=== PATIENT | female | born 1985 | race Caucasian/White ===

== ENCOUNTER 2016-06-24 18:01 | Emergency (ER) | payer OTHER ==
[~2016-06-24 18:01] MED LIST: METHADONE HCL10 MG PO
--- NOTE | 2016-06-24 21:04 | ED CLINICAL REPORT ---
Clinical Report - Physicians/Mid Levels [facility] [address] [place] [address] 06/24/2016 18:04 Patient: RENAY GARZA Time Seen: 18:06. Arrived- By private vehicle. Historian- patient. HISTORY OF PRESENT ILLNESS Chief Complaint: VOMITING and DIARRHEA. This started 2 days ago and is still present but is improving. It was abrupt in onset and has been constant. The patient has had nausea, vomiting, diarrhea and abdominal pain. No black stools, bloody stools, constipation, history of possible bad food exposure or known contact with a sick individual. Has not recently been camping or on antibiotics. The illness is described as severe. (Patient says she suddenly got nauseous and started vomiting 2 days ago. She has a colostomy bag as well for ulcerative colitisand says herstool has been more liquidy. No blood in the colostomy bag. No fevers or chills. She is got diffuse abdominal cramping. No pain with urination or increased urinary frequency.). Similar symptoms previously: None. Recent medical care: Not recently seen/assessed. REVIEW OF SYSTEMS No fever, difficulty with urination or urination, dark urine or chills. No ear pain, runny nose, sore throat, cough or black stools. No bloody stools, urinary frequency, hematuria, back pain or neck pain. No skin rash, headache, numbness, weakness or diabetic symptoms. The patient has had weight loss, diarrhea, nausea and vomiting. All systems otherwise negative, except as recorded above. PAST HISTORY See nurses notes. GI disease. No history of diabetes mellitus. SOCIAL HISTORY Smoker- current status unknown. History of drug use. ADDITIONAL NOTES The nursing notes have been reviewed. PHYSICAL EXAM Appearance: Alert. Oriented X3. No acute distress. Eyes: Pupils equal, round and reactive to light. Eyes normal inspection. ENT: Nose normal. Pharynx normal. Neck: Normal inspection. Neck supple. No meningeal signs, JVD or lymphadenopathy. CVS: Normal heart rate and rhythm. Heart sounds normal. Respiratory: No respiratory distress. Breath sounds normal. Abdomen: Soft. Mild tenderness diffusely. No guarding or rebound tenderness. No organomegaly. No mass. (Colostomy bag present.). Back: Normal inspection. No CVA tenderness. Skin: Skin warm and dry. No rash. Extremities: Extremities exhibit normal ROM. No lower extremity edema. Neuro: Oriented X 3. No motor deficit. No sensory deficit. LABS, X-RAYS, AND EKG Laboratory Tests: UA-Culture if indicated: (AMADO: 06/24/2016 19:51) ( [facility] 06/24/2016 20:09) Final results Test Result Flag Units (Reference) URINE COLOR YELLOW URINE APPEARANCE CLEAR URINE GLUCOSE NEGATIVE (NEGATIVE) URINE BILIRUBIN NEGATIVE (NEGATIVE) URINE KETONE NEGATIVE (NEGATIVE) URINE SPECIFIC GRAVITY 1.020 (1.010-1.030) URINE PH 6.0 (5.0-8.0) URINE PROTEIN NEGATIVE (NEGATIVE) URINE UROBILINOGEN 0.2 EU/dL (0.2-1.0) URINE NITRITE NEGATIVE (NEGATIVE) URINE BLOOD NEGATIVE (NEGATIVE) URINE LEUK ESTERASE NEGATIVE (NEGATIVE) URINE RBC NONE SEEN rbc/hpf (0-1) URINE WBC 0-1 wbc/hpf (0-1) URINE EPITHELIAL CELLS 1-3 EPI/hpf (0-5) URINE BACTERIA TRACE (<1+) (NONE SEEN) URINE COMMENT CULT NOT INDICATED URINE CULTURES ARE SET-UP BASED ON THE FOLLOWING CRITERIA:POSITIVE NITRITEPOSITIVE LEUKOCYTE ESTERASEGREATER THAN 10 WHITE BLOOD CELLSMODERATE (2+) OR GREATER BACTERIA Urine: (AMADO: 06/24/2016 19:51) ( [facility] 06/24/2016 20:00) Final results Test Result Flag Units (Reference) URINE NEGATIVE CBC w Diff: (AMADO: 06/24/2016 19:48) ( [facility] [place] 06/24/2016 19:58) Final results Test Result Flag Units (Reference) WHITE BLOOD COUNT 6.8 K/uL (4.5-11.5) RED BLOOD COUNT 4.63 M/uL (4.00-5.20) HEMOGLOBIN 11.9 L gm/dL (12.0-16.0) HEMATOCRIT 36.6 % (36.0-46.0) MEAN CELL VOLUME 79 L fL (80-100) MEAN CORPUSCULAR HGB 26 pg (26-34) MEAN CORPUSCULAR HGB CONC 33 g/dL (31-37) RED CELL DISTRIBUTION WIDTH 16.9 H % (11.6-14.8) PLATELET COUNT 620 H K/uL (150-400) NEUTROPHIL % 62.4 % (50-75) LYMPH % 22.1 L % (25-40) MONO % 12.7 % (3-14) EOSINOPHIL % 2.6 % (0-4) BASOPHIL % 0.2 % (0-2) CMP: (AMADO: 06/24/2016 19:48) ( MsgRcvd 06/24/2016 20:46) Final results Test Result Flag Units (Reference) GLUCOSE 112 H mg/dL (70-110) BUN 39 H mg/dL (7-18) CREATININE 1.2 mg/dL (0.6-1.3) Estimated GFR 56.85 mL/min Estimated GFR- >60 mL/min Note: Persistent reduction over 3 months in eGFR<60 mL/min/1.73 m2 defines CKD. Patients with eGFR values>=60 mL/min/1.73 m2 may also have CKD if evidence ofpersistent proteinuria. Additional information may be foundat www.kidney.org. SODIUM 128 L mmol/L (136-145) POTASSIUM 4.2 mmol/L (3.5-5.1) CHLORIDE 93 L mmol/L (98-107) CARBON DIOXIDE 23 mmol/L (21-32) CALCIUM 8.6 mg/dL (8.5-10.1) TOTAL PROTEIN 8.4 H g/dL (6.4-8.2) ALBUMIN 2.9 L g/dL (3.3-5.0) BILIRUBIN, TOTAL 0.4 mg/dL (0.0-1.0) ALKALINE PHOSPHATASE 114 U/L (46-116) AST (SGOT) 14 L U/L (15-37) ALT (SGPT) 17 U/L (12-78) C-REACTIVE PROTEIN 3.0 H mg/dL (0.0-0.9) . PROGRESS AND PROCEDURES Course of Care: 19:44 06/24/16. Patient stable. Diffuse abdominal pain. Likely viral etiologyalthough history of Crohn's we'll check a CBC and CRP. Otherwise give Zofran for nausea and rehydrate. She starting to feel better already on her own so will not Require aggressive treatment. Patient's lab essentially normal. CRP slightly elevated but I doubt significant worsening of her ulcerative colitis/Crohn's. We'll make her comfortable. She needs to follow up with her primary care provider next week for reevaluation. Warnings given return here if she develops fever, significant worsening pain or uncontrolled v. Discharge decision based on the following: patient's condition is stable; patient's condition is improved; patient's exam is improved. CLINICAL IMPRESSION Acute viral gastroenteritis. INSTRUCTIONS Rest at home for two days until better. Drink plenty of fluids. No dietary restrictions. Warnings: Further evaluation is necessary in order to assess the possibility of serious illness. It is very important to follow up with a physician. CONTROLLED SUBSTANCE WARNINGS. Prescription Medications: Zofran ODT 8 mg: take 1 orally every 8 hours as needed for nausea and vomiting. Dispense ten (10). No refill. Substitution is permissible. OTC Medications: Imodium (available over the counter): take according to label instructions. Follow-up: Follow up with your doctor in three days if not well. Understanding of the discharge instructions verbalized by patient. (Electronically signed by Osito Baldwin, 06/24/2016 23:15)
--- NOTE | 2016-06-24 21:04 | ED NURSING NOTES ---
Clinical Report - Nurses [facility] [address] [place] [address] 06/24/2016 18:04 [id number] Triage time 18:38. Acuity: LEVEL 3. Chief Complaint: FATIGUE, VOMITING and UNABLE TO VOID (leg cramps). Alert. No acute distress. VENITA COMA SCORE: [place] Coma Scale: 15- eyes open spontaneously (4); best verbal response- oriented x 4 (5); best motor response- obeys commands (6). --18:50 Carlotta Ly R.N. 18:37 06/24/16. BP: 101/6. HR: 79. RR: 18. O2 saturation: 99% on room air. Temp: 98.7 F (oral). Pain level now: 5/10. --18:50 Carlotta Ly R.N. Weight: 46.7 kg measured. Height/Length: 65 inches Per Patient. BMI: 17.2. --18:39 Carlotta Ly R.N. Medications None. --18:40 Carlotta Ly R.N. Medication/allergy information source: the patient. --18:50 Carlotta Ly R.N. Allergies Acetaminophen. Ceclor. Hydrocodone. Morphine and Related. Penicillins. --18:41 Carlotta Ly R.N. History Arrived by private vehicle. Historian: patient and family. Accompanied by family. Primary physician (Afshan). Onset. (about 3 - 4 days). PAST MEDICAL HX: Last normal menstrual period- May 2015. SOCIAL HX: Heavy tobacco smoker- less than 1 pack per day. History of drug use: heroin, marijuana. (used "a few hours ago"). No alcohol use. LEARNING NEEDS ASSESSMENT: The learning needs assessment revealed no barriers. FALL RISK ASSESSMENT: Fall risk assessment completed. Risk factors identified include patient impairment of mobility. Fall interventions initiated. Patient placed on stretcher. Side rails up x2. Brakes on Bed in low position. Family at bedside. FUNCTIONAL ASSESSMENT: Functional assessment performed: independent with the activities of daily living. --18:50 Carlotta Ly R.N. PROBLEMS: Lifestyle / Substance Problems. Crohn's Disease. Ulcerative Colitis. --18:42 Carlotta Ly R.N. Bipolar Disorder. Blood clots. --18:50 Carlotta Ly R.N. ADDITIONAL SURGERIES: Osteotomy. --18:42 Carlotta Ly R.N. Assessment GENERAL / NEURO / PSYCH: Alert. Oriented X 4. Appears in no acute distress. Patient appears calm and cooperative. RESPIRATORY: Respirations not labored. SKIN: Skin is warm and dry. --18:50 Carlotta Ly R.N. Interventions ID and allergy band on patient. To treatment room. --18:50 Carlotta Ly R.N. PHYSICAL ASSESSMENT 19:06/24/16. Ambulatory to room. Patient gowned. GENERAL / NEURO / PSYCH: Alert. Oriented X 4. Appears in no acute distress. RESPIRATORY: Respirations not labored. SKIN: Skin is warm and dry. --19:07 Carlotta Ly R.N. NURSING PROGRESS NOTES 19:06/24/16. Patient gowned. Head of bed elevated. Call light placed in reach. Side rails up x 1. Bed placed in lowest position. Brakes of bed on. --19:07 Carlotta Ly R.N. 19:41 06/24/2016 Site #1 started via IV in the right forearm with an 22g angiocath; one attempt. Saline lock flushed with saline. --19:41 Franklin Evans R.N. 19:53 06/24/2016 Zofran (Ondansetron HCl) IVP 8 mg given over 4 minute(s) via site #1. Allergies verified and confirmed 5 rights. IV patency established. IV site checked: no pain, redness, or swelling. IV flushed thoroughly pre- and post-medication administration. --19:53 Franklin Evans R.N. 19:53 06/24/2016 Started bag #1 1000 mL IV Fluids IV NS (Saline); bolus of 1000 mL wide open via site #1. Allergies verified and confirmed 5 rights. IV patency established. IV site checked: no pain, redness, or swelling. IV flushed thoroughly pre- and post-medication administration. --19:54 Franklin Evans R.N. DISPOSITION / DISCHARGE Departure time: 2100. Condition at departure: improved. No learning barriers present. Discharge instructions provided and reviewed with the patient. Reviewed warnings. Reviewed medication(s). Treatments reviewed. Reviewed referrals. Reviewed diet. Activity restrictions reviewed. Note given. Patient verbalized understanding. Written instructions provided in Citizen Of [place]. The patient was discharged by the physician health assistant. She was discharged home and unaccompanied at time of discharge. She left the Emergency Department ambulatory and via private vehicle. Patient driving. --22:29 Franklin Evans R.N. 22:28 06/24/16. BP: 101/61. HR: 66. RR: 16. O2 saturation: 99%. Temp: 98 F. Pain level now 0/10. --22:29 Franklin Evans R.N. 20:29 06/24/2016 Site #1 removed upon discharge. Bandage applied. --22:29 Franklin Evans R.N. Locked/Released at 06/24/2016 22:30 by Franklin Evans R.N.
--- NOTE | 2016-06-24 21:04 | ED NURSING NOTES ---
Clinical Report - Nurses [facility] [address] [place] [address] 06/24/2016 18:04 [id number] Triage time 18:38. Acuity: LEVEL 3. Chief Complaint: FATIGUE, VOMITING and UNABLE TO VOID (leg cramps). Alert. No acute distress. VENITA COMA SCORE: [place] Coma Scale: 15- eyes open spontaneously (4); best verbal response- oriented x 4 (5); best motor response- obeys commands (6). --18:50 Carlotta Ly R.N. 18:37 06/24/16. BP: 101/6. HR: 79. RR: 18. O2 saturation: 99% on room air. Temp: 98.7 F (oral). Pain level now: 5/10. --18:50 Carlotta Ly R.N. Weight: 46.7 kg measured. Height/Length: 65 inches Per Patient. BMI: 17.2. --18:39 Carlotta Ly R.N. Medications None. --18:40 Carlotta Ly R.N. Medication/allergy information source: the patient. --18:50 Carlotta Ly R.N. Allergies Acetaminophen. Ceclor. Hydrocodone. Morphine and Related. Penicillins. --18:41 Carlotta Ly R.N. History Arrived by private vehicle. Historian: patient and family. Accompanied by family. Primary physician (Afshan). Onset. (about 3 - 4 days). PAST MEDICAL HX: Last normal menstrual period- May 2015. SOCIAL HX: Heavy tobacco smoker- less than 1 pack per day. History of drug use: heroin, marijuana. (used "a few hours ago"). No alcohol use. LEARNING NEEDS ASSESSMENT: The learning needs assessment revealed no barriers. FALL RISK ASSESSMENT: Fall risk assessment completed. Risk factors identified include patient impairment of mobility. Fall interventions initiated. Patient placed on stretcher. Side rails up x2. Brakes on Bed in low position. Family at bedside. FUNCTIONAL ASSESSMENT: Functional assessment performed: independent with the activities of daily living. --18:50 Carlotta Ly R.N. PROBLEMS: Lifestyle / Substance Problems. Crohn's Disease. Ulcerative Colitis. --18:42 Carlotta Ly R.N. Bipolar Disorder. Blood clots. --18:50 Carlotta Ly R.N. ADDITIONAL SURGERIES: Osteotomy. --18:42 Carlotta Ly R.N. Assessment GENERAL / NEURO / PSYCH: Alert. Oriented X 4. Appears in no acute distress. Patient appears calm and cooperative. RESPIRATORY: Respirations not labored. SKIN: Skin is warm and dry. --18:50 Carlotta Ly R.N. Interventions ID and allergy band on patient. To treatment room. --18:50 Carlotta Ly R.N. PHYSICAL ASSESSMENT 19:06/24/16. Ambulatory to room. Patient gowned. GENERAL / NEURO / PSYCH: Alert. Oriented X 4. Appears in no acute distress. RESPIRATORY: Respirations not labored. SKIN: Skin is warm and dry. --19:07 Carlotta Ly R.N. NURSING PROGRESS NOTES 19:06/24/16. Patient gowned. Head of bed elevated. Call light placed in reach. Side rails up x 1. Bed placed in lowest position. Brakes of bed on. --19:07 Carlotta Ly R.N. 19:41 06/24/2016 Site #1 started via IV in the right forearm with an 22g angiocath; one attempt. Saline lock flushed with saline. --19:41 Franklin Evans R.N. 19:53 06/24/2016 Zofran (Ondansetron HCl) IVP 8 mg given over 4 minute(s) via site #1. Allergies verified and confirmed 5 rights. IV patency established. IV site checked: no pain, redness, or swelling. IV flushed thoroughly pre- and post-medication administration. --19:53 Franklin Evans R.N. 19:53 06/24/2016 Started bag #1 1000 mL IV Fluids IV NS (Saline); bolus of 1000 mL wide open via site #1. Allergies verified and confirmed 5 rights. IV patency established. IV site checked: no pain, redness, or swelling. IV flushed thoroughly pre- and post-medication administration. --19:54 Franklin Evans R.N. DISPOSITION / DISCHARGE Departure time: 2100. Condition at departure: improved. No learning barriers present. Discharge instructions provided and reviewed with the patient. Reviewed warnings. Reviewed medication(s). Treatments reviewed. Reviewed referrals. Reviewed diet. Activity restrictions reviewed. Note given. Patient verbalized understanding. Written instructions provided in [place] Citizen. The patient was discharged by the physician marketing administrative assistant. She was discharged home and unaccompanied at time of discharge. She left the Emergency Department ambulatory and via private vehicle. Patient driving. --22:29 Franklin Evans R.N. 22:28 06/24/16. BP: 101/61. HR: 66. RR: 16. O2 saturation: 99%. Temp: 98 F. Pain level now 0/10. --22:29 Franklin Evans R.N. 20:29 06/24/2016 Site #1 removed upon discharge. Bandage applied. --22:29 Franklin Evans R.N. Locked/Released at 06/24/2016 22:30 by Franklin Evans R.N.
--- NOTE | 2016-06-24 21:04 | ED ORDER SUMMARY ---
..... Patient: RENAY GARZA OrderSheet [facility] VisitID: [id number] [place] [address] 30y, F Registration Date/Time: 06/24/2016 ORDER SHEET Weight: 46.7 kg (measured) Allergies: Acetaminophen, Ceclor, Hydrocodone, Morphine and Related, Penicillins GENERAL ORDERS: CBC w Diff Urgent (19:06/24/2016 JCoates) (Ack 19:47 ALawrence ER Tech1) (19:49 ALawrence ER Tech1) CMP Urgent (:06/24/2016 JCoates) (Ack 19:47 ALawrence ER Tech1) (19:49 ALawrence ER Tech1) UA-Culture if indicated Urgent (:06/24/2016 JCoates) (Ack 19:47 ALawrence ER Tech1) (19:53 JBullard R.N.) Urine Urgent (:06/24/2016 JCoates) (Ack 19:47 ALawrence ER Tech1) (19:53 JBullard R.N.) CRP Urgent (:06/24/2016 JCoates) (Ack 19:47 ALawrence ER Tech1) (19:49 ALawrence ER Tech1) MEDICATION ORDERS: IV FLUIDS: IV NS with Normal Saline 1 Liter: initial bolus 1000 mL (1000 mL/hr), then 1000 mL/hr for X1 (NOW) (19:06/24/2016 JCoates) (19:54 JBullard R.N.) Zofran IV 8 mg (NOW) (:06/24/2016 JCoates) (19:53 JBullard R.N.) IV Saline Lock (:06/24/2016 JCoates) (19:41 JBullard R.N.) ORDER SHEET NOTES: [Electronically signed by Franklin Evans R.N. (22:30 06/24/2016)] [Electronically signed by Osito Baldwin (23:15 06/24/2016)] [Electronically locked/signed by Franklin Evans R.N. (22:30 06/24/2016)]
--- NOTE | 2016-06-24 21:04 | ED CLINICAL REPORT ---
Clinical Report - Physicians/Mid Levels [facility] [address] [place] [address] 06/24/2016 18:04 Patient: RENAY GARZA Time Seen: 18:06. Arrived- By private vehicle. Historian- patient. HISTORY OF PRESENT ILLNESS Chief Complaint: VOMITING and DIARRHEA. This started 2 days ago and is still present but is improving. It was abrupt in onset and has been constant. The patient has had nausea, vomiting, diarrhea and abdominal pain. No black stools, bloody stools, constipation, history of possible bad food exposure or known contact with a sick individual. Has not recently been camping or on antibiotics. The illness is described as severe. (Patient says she suddenly got nauseous and started vomiting 2 days ago. She has a colostomy bag as well for ulcerative colitisand says herstool has been more liquidy. No blood in the colostomy bag. No fevers or chills. She is got diffuse abdominal cramping. No pain with urination or increased urinary frequency.). Similar symptoms previously: None. Recent medical care: Not recently seen/assessed. REVIEW OF SYSTEMS No fever, difficulty with urination or urination, dark urine or chills. No ear pain, runny nose, sore throat, cough or black stools. No bloody stools, urinary frequency, hematuria, back pain or neck pain. No skin rash, headache, numbness, weakness or diabetic symptoms. The patient has had weight loss, diarrhea, nausea and vomiting. All systems otherwise negative, except as recorded above. PAST HISTORY See nurses notes. GI disease. No history of diabetes mellitus. SOCIAL HISTORY Smoker- current status unknown. History of drug use. ADDITIONAL NOTES The nursing notes have been reviewed. PHYSICAL EXAM Appearance: Alert. Oriented X3. No acute distress. Eyes: Pupils equal, round and reactive to light. Eyes normal inspection. ENT: Nose normal. Pharynx normal. Neck: Normal inspection. Neck supple. No meningeal signs, JVD or lymphadenopathy. CVS: Normal heart rate and rhythm. Heart sounds normal. Respiratory: No respiratory distress. Breath sounds normal. Abdomen: Soft. Mild tenderness diffusely. No guarding or rebound tenderness. No organomegaly. No mass. (Colostomy bag present.). Back: Normal inspection. No CVA tenderness. Skin: Skin warm and dry. No rash. Extremities: Extremities exhibit normal ROM. No lower extremity edema. Neuro: Oriented X 3. No motor deficit. No sensory deficit. LABS, X-RAYS, AND EKG Laboratory Tests: UA-Culture if indicated: (AMADO: 06/24/2016 19:51) ( [facility] 06/24/2016 20:09) Final results Test Result Flag Units (Reference) URINE COLOR YELLOW URINE APPEARANCE CLEAR URINE GLUCOSE NEGATIVE (NEGATIVE) URINE BILIRUBIN NEGATIVE (NEGATIVE) URINE KETONE NEGATIVE (NEGATIVE) URINE SPECIFIC GRAVITY 1.020 (1.010-1.030) URINE PH 6.0 (5.0-8.0) URINE PROTEIN NEGATIVE (NEGATIVE) URINE UROBILINOGEN 0.2 EU/dL (0.2-1.0) URINE NITRITE NEGATIVE (NEGATIVE) URINE BLOOD NEGATIVE (NEGATIVE) URINE LEUK ESTERASE NEGATIVE (NEGATIVE) URINE RBC NONE SEEN rbc/hpf (0-1) URINE WBC 0-1 wbc/hpf (0-1) URINE EPITHELIAL CELLS 1-3 EPI/hpf (0-5) URINE BACTERIA TRACE (<1+) (NONE SEEN) URINE COMMENT CULT NOT INDICATED URINE CULTURES ARE SET-UP BASED ON THE FOLLOWING CRITERIA:POSITIVE NITRITEPOSITIVE LEUKOCYTE ESTERASEGREATER THAN 10 WHITE BLOOD CELLSMODERATE (2+) OR GREATER BACTERIA Urine: (AMADO: 06/24/2016 19:51) ( [facility] 06/24/2016 20:00) Final results Test Result Flag Units (Reference) URINE NEGATIVE CBC w Diff: (AMADO: 06/24/2016 19:48) ( [facility] 06/24/2016 19:58) Final results Test Result Flag Units (Reference) WHITE BLOOD COUNT 6.8 K/uL (4.5-11.5) RED BLOOD COUNT 4.63 M/uL (4.00-5.20) HEMOGLOBIN 11.9 L gm/dL (12.0-16.0) HEMATOCRIT 36.6 % (36.0-46.0) MEAN CELL VOLUME 79 L fL (80-100) MEAN CORPUSCULAR HGB 26 pg (26-34) MEAN CORPUSCULAR HGB CONC 33 g/dL (31-37) RED CELL DISTRIBUTION WIDTH 16.9 H % (11.6-14.8) PLATELET COUNT 620 H K/uL (150-400) NEUTROPHIL % 62.4 % (50-75) LYMPH % 22.1 L % (25-40) MONO % 12.7 % (3-14) EOSINOPHIL % 2.6 % (0-4) BASOPHIL % 0.2 % (0-2) CMP: (AMADO: 06/24/2016 19:48) ( MsgRcvd 06/24/2016 20:46) Final results Test Result Flag Units (Reference) GLUCOSE 112 H mg/dL (70-110) BUN 39 H mg/dL (7-18) CREATININE 1.2 mg/dL (0.6-1.3) Estimated GFR 56.85 mL/min Estimated GFR- >60 mL/min Note: Persistent reduction over 3 months in eGFR<60 mL/min/1.73 m2 defines CKD. Patients with eGFR values>=60 mL/min/1.73 m2 may also have CKD if evidence ofpersistent proteinuria. Additional information may be foundat www.kidney.org. SODIUM 128 L mmol/L (136-145) POTASSIUM 4.2 mmol/L (3.5-5.1) CHLORIDE 93 L mmol/L (98-107) CARBON DIOXIDE 23 mmol/L (21-32) CALCIUM 8.6 mg/dL (8.5-10.1) TOTAL PROTEIN 8.4 H g/dL (6.4-8.2) ALBUMIN 2.9 L g/dL (3.3-5.0) BILIRUBIN, TOTAL 0.4 mg/dL (0.0-1.0) ALKALINE PHOSPHATASE 114 U/L (46-116) AST (SGOT) 14 L U/L (15-37) ALT (SGPT) 17 U/L (12-78) C-REACTIVE PROTEIN 3.0 H mg/dL (0.0-0.9) . PROGRESS AND PROCEDURES Course of Care: 19:44 06/24/16. Patient stable. Diffuse abdominal pain. Likely viral etiologyalthough history of Crohn's we'll check a CBC and CRP. Otherwise give Zofran for nausea and rehydrate. She starting to feel better already on her own so will not Require aggressive treatment. Patient's lab essentially normal. CRP slightly elevated but I doubt significant worsening of her ulcerative colitis/Crohn's. We'll make her comfortable. She needs to follow up with her primary care provider next week for reevaluation. Warnings given return here if she develops fever, significant worsening pain or uncontrolled v. Discharge decision based on the following: patient's condition is stable; patient's condition is improved; patient's exam is improved. CLINICAL IMPRESSION Acute viral gastroenteritis. INSTRUCTIONS Rest at home for two days until better. Drink plenty of fluids. No dietary restrictions. Warnings: Further evaluation is necessary in order to assess the possibility of serious illness. It is very important to follow up with a physician. CONTROLLED SUBSTANCE WARNINGS. Prescription Medications: Zofran ODT 8 mg: take 1 orally every 8 hours as needed for nausea and vomiting. Dispense ten (10). No refill. Substitution is permissible. OTC Medications: Imodium (available over the counter): take according to label instructions. Follow-up: Follow up with your doctor in three days if not well. Understanding of the discharge instructions verbalized by patient. (Electronically signed by Osito Baldwin, 06/24/2016 23:15)
--- NOTE | 2016-06-24 21:04 | ED ORDER SUMMARY ---
..... Patient: RENAY GARZA OrderSheet [facility] VisitID: [id number] [place] [address] 30y, F Registration Date/Time: 06/24/2016 ORDER SHEET Weight: 46.7 kg (measured) Allergies: Acetaminophen, Ceclor, Hydrocodone, Morphine and Related, Penicillins GENERAL ORDERS: CBC w Diff Urgent (19:06/24/2016 JCoates) (Ack 19:47 ALawrence ER Tech1) (19:49 ALawrence ER Tech1) CMP Urgent (:06/24/2016 JCoates) (Ack 19:47 ALawrence ER Tech1) (19:49 ALawrence ER Tech1) UA-Culture if indicated Urgent (:06/24/2016 JCoates) (Ack 19:47 ALawrence ER Tech1) (19:53 JBullard R.N.) Urine Urgent (:06/24/2016 JCoates) (Ack 19:47 ALawrence ER Tech1) (19:53 JBullard R.N.) CRP Urgent (:06/24/2016 JCoates) (Ack 19:47 ALawrence ER Tech1) (19:49 ALawrence ER Tech1) MEDICATION ORDERS: IV FLUIDS: IV NS with Normal Saline 1 Liter: initial bolus 1000 mL (1000 mL/hr), then 1000 mL/hr for X1 (NOW) (19:06/24/2016 JCoates) (19:54 JBullard R.N.) Zofran IV 8 mg (NOW) (:06/24/2016 JCoates) (19:53 JBullard R.N.) IV Saline Lock (:06/24/2016 JCoates) (19:41 JBullard R.N.) ORDER SHEET NOTES: [Electronically signed by Franklin Evans R.N. (22:30 06/24/2016)] [Electronically signed by Osito Baldwin (23:15 06/24/2016)] [Electronically locked/signed by Franklin Evans R.N. (22:30 06/24/2016)]
--- NOTE | 2016-06-24 23:15 | ED MED RECONCILIATION SUMMARY ---
Patient: RENAY GARZA Medication Reconciliation Report [facility] VisitID: [id number] [place] [address] 30y, F Registration Date/Time: 06/24/2016 Weight: 46.7 kg Height/Length: 65 in. BMI: 17.2 ALLERGIES: Acetaminophen, Ceclor, Hydrocodone, Morphine and Related, Penicillins The patient's Home Medications are listed below: NONE. The source(s) of the original Home Medication information: patient The following Medications were given to the patient in the Emergency Department: Zofran [IVP] IVP 8 mg, administered: 06/24/2016 7:53:00 PM IV NS IV Fluids bolus 1000 mL wide open, administered: 06/24/2016 7:53:00 PM The following Medications were prescribed to the patient: Imodium (available over the counter): take according to label instructions. -- Osito Baldwin Zofran ODT 8 mg: take 1 orally every 8 hours as needed for nausea and vomiting. Dispense ten (10). No refill. Substitution is permissible. -- Osito Baldwin
--- NOTE | 2016-06-24 23:15 | ED MAR SUMMARY ---
..... Medication Administration Record [facility] [address] [place] [address] Patient: RENAY GARZA Visit ID: [id number] 30y, F Weight: 46.7 kg Height/Length: 65 in BMI: 17.2 ALLERGIES: Penicillins, Acetaminophen, Morphine and Related, Hydrocodone, Ceclor Start 19:53 06/24/2016 Franklin Evans R.N. Medication Administered: IV NS (SALINE), Dose: IV Fluids, Bolus: 1000 mL wide open, Dispensed: 1000 mL bag, Site: #1 right forearm. Medication Ordered: IV NS with Normal Saline 1 Liter: initial bolus 1000 mL (1000 mL/hr), then 1000 mL/hr for X1 (NOW). Given 19:53 06/24/2016 Franklin Evans R.N. Medication Administered: ZOFRAN [IVP] (ONDANSETRON HCL), Dose: 8 mg IVP over 4 minute(s), Site: #1 right forearm. Medication Ordered: Zofran IV 8 mg (NOW).
--- NOTE | 2016-06-24 23:15 | ED MAR SUMMARY ---
..... Medication Administration Record [facility] [address] [place] [address] Patient: RENAY GARZA Visit ID: [id number] 30y, F Weight: 46.7 kg Height/Length: 65 in BMI: 17.2 ALLERGIES: Penicillins, Acetaminophen, Morphine and Related, Hydrocodone, Ceclor Start 19:53 06/24/2016 Franklin Evans R.N. Medication Administered: IV NS (SALINE), Dose: IV Fluids, Bolus: 1000 mL wide open, Dispensed: 1000 mL bag, Site: #1 right forearm. Medication Ordered: IV NS with Normal Saline 1 Liter: initial bolus 1000 mL (1000 mL/hr), then 1000 mL/hr for X1 (NOW). Given 19:53 06/24/2016 Franklin Evans R.N. Medication Administered: ZOFRAN [IVP] (ONDANSETRON HCL), Dose: 8 mg IVP over 4 minute(s), Site: #1 right forearm. Medication Ordered: Zofran IV 8 mg (NOW).
--- NOTE | 2016-06-24 23:15 | ED DISCHARGE INSTRUCTIONS ---
Patient: RENAY GARZA General Instructions [facility] VisitID: [id number] [place] [address] 30y, F Registration Date/Time: 06/24/2016 Acute viral gastroenteritis. INSTRUCTIONS Rest at home for two days until better. Drink plenty of fluids. No dietary restrictions. Warnings: Further evaluation is necessary in order to assess the possibility of serious illness. It is very important to follow up with a physician. CONTROLLED SUBSTANCE WARNINGS. Prescription Medications: Zofran ODT 8 mg: take 1 orally every 8 hours as needed for nausea and vomiting. Dispense ten (10). No refill. Substitution is permissible. OTC Medications: Imodium (available over the counter): take according to label instructions. Follow-up: Follow up with your doctor in three days if not well. Understanding of the discharge instructions verbalized by patient. ADDITIONAL INFORMATION Ondansetron Oral disintegrating tablet What is this medicine? ONDANSETRON (on JOSE ALBERTO se balaji) is used to treat nausea and vomiting caused by chemotherapy. It is also used to prevent or treat nausea and vomiting after surgery. How should I use this medicine? These tablets are made to dissolve in the mouth. Do not try to push the tablet through the foil backing. With dry hands, peel away the foil backing and gently remove the tablet. Place the tablet in the mouth and allow it to dissolve, then swallow. While you may take these tablets with water, it is not necessary to do so. Talk to your music teacher regarding the use of this medicine in children. Special care may be needed. What side effects may I notice from receiving this medicine? Side effects that you should report to your doctor or health child care aide as soon as possible: allergic reactions like skin rash, itching or hives, swelling of the face, lips, or tongue breathing problems dizziness fast or irregular heartbeat feeling faint or lightheaded, falls fever and chills swelling of the hands and feet tightness in the chest Side effects that usually do not require medical attention (report to your doctor or health child care aide if they continue or are bothersome): constipation or diarrhea headache What may interact with this medicine? Do not take this medicine with any of the following medications: -apomorphine -cisapride -dofetilide -dronedarone -pimozide -thioridazine -ziprasidone This medicine may also interact with the following medications: -carbamazepine -phenytoin -rifampicin -tramadol -other medicines that prolong the QT interval (cause an abnormal heart rhythm) What if I miss a dose? If you miss a dose, take it as soon as you can. If it is almost time for your next dose, take only that dose. Do not take double or extra doses. Where should I keep my medicine? Keep out of the reach of children. Store between 2 and 30 degrees C (36 and 86 degrees F). Throw away any unused medicine after the expiration date. What should I tell my health care provider before I take this medicine? They need to know if you have any of these conditions: heart disease history of irregular heartbeat liver disease low levels of magnesium or potassium in the blood an unusual or allergic reaction to ondansetron, granisetron, other medicines, foods, dyes, or preservatives or trying to get breast-feeding What should I watch for while using this medicine? Check with your doctor or health child care aide as soon as you can if you have any sign of an allergic reaction. You have been given the following additional information: Ondansetron Oral disintegrating tablet Rest at home for two days until better. (Electronically signed by Osito Baldwin, 06/24/2016 23:15)
--- NOTE | 2016-06-24 23:15 | ED MED RECONCILIATION SUMMARY ---
Patient: RENAY GARZA Medication Reconciliation Report [facility] VisitID: [id number] [place] [address] 30y, F Registration Date/Time: 06/24/2016 Weight: 46.7 kg Height/Length: 65 in. BMI: 17.2 ALLERGIES: Acetaminophen, Ceclor, Hydrocodone, Morphine and Related, Penicillins The patient's Home Medications are listed below: NONE. The source(s) of the original Home Medication information: patient The following Medications were given to the patient in the Emergency Department: Zofran [IVP] IVP 8 mg, administered: 06/24/2016 7:53:00 PM IV NS IV Fluids bolus 1000 mL wide open, administered: 06/24/2016 7:53:00 PM The following Medications were prescribed to the patient: Imodium (available over the counter): take according to label instructions. -- Osito Baldwin Zofran ODT 8 mg: take 1 orally every 8 hours as needed for nausea and vomiting. Dispense ten (10). No refill. Substitution is permissible. -- Osito Baldwin
--- NOTE | 2016-06-24 23:15 | ED DISCHARGE INSTRUCTIONS ---
Patient: RENAY GARZA General Instructions [facility] VisitID: [id number] [place] [address] 30y, F Registration Date/Time: 06/24/2016 Acute viral gastroenteritis. INSTRUCTIONS Rest at home for two days until better. Drink plenty of fluids. No dietary restrictions. Warnings: Further evaluation is necessary in order to assess the possibility of serious illness. It is very important to follow up with a physician. CONTROLLED SUBSTANCE WARNINGS. Prescription Medications: Zofran ODT 8 mg: take 1 orally every 8 hours as needed for nausea and vomiting. Dispense ten (10). No refill. Substitution is permissible. OTC Medications: Imodium (available over the counter): take according to label instructions. Follow-up: Follow up with your doctor in three days if not well. Understanding of the discharge instructions verbalized by patient. ADDITIONAL INFORMATION Ondansetron Oral disintegrating tablet What is this medicine? ONDANSETRON (on JOSE ALBERTO se balaji) is used to treat nausea and vomiting caused by chemotherapy. It is also used to prevent or treat nausea and vomiting after surgery. How should I use this medicine? These tablets are made to dissolve in the mouth. Do not try to push the tablet through the foil backing. With dry hands, peel away the foil backing and gently remove the tablet. Place the tablet in the mouth and allow it to dissolve, then swallow. While you may take these tablets with water, it is not necessary to do so. Talk to your business services sales agent regarding the use of this medicine in children. Special care may be needed. What side effects may I notice from receiving this medicine? Side effects that you should report to your doctor or health director of home care hospice as soon as possible: allergic reactions like skin rash, itching or hives, swelling of the face, lips, or tongue breathing problems dizziness fast or irregular heartbeat feeling faint or lightheaded, falls fever and chills swelling of the hands and feet tightness in the chest Side effects that usually do not require medical attention (report to your doctor or health director of home care hospice if they continue or are bothersome): constipation or diarrhea headache What may interact with this medicine? Do not take this medicine with any of the following medications: -apomorphine -cisapride -dofetilide -dronedarone -pimozide -thioridazine -ziprasidone This medicine may also interact with the following medications: -carbamazepine -phenytoin -rifampicin -tramadol -other medicines that prolong the QT interval (cause an abnormal heart rhythm) What if I miss a dose? If you miss a dose, take it as soon as you can. If it is almost time for your next dose, take only that dose. Do not take double or extra doses. Where should I keep my medicine? Keep out of the reach of children. Store between 2 and 30 degrees C (36 and 86 degrees F). Throw away any unused medicine after the expiration date. What should I tell my health care provider before I take this medicine? They need to know if you have any of these conditions: heart disease history of irregular heartbeat liver disease low levels of magnesium or potassium in the blood an unusual or allergic reaction to ondansetron, granisetron, other medicines, foods, dyes, or preservatives or trying to get breast-feeding What should I watch for while using this medicine? Check with your doctor or health director of home care hospice as soon as you can if you have any sign of an allergic reaction. You have been given the following additional information: Ondansetron Oral disintegrating tablet Rest at home for two days until better. (Electronically signed by Osito Baldwin, 06/24/2016 23:15)
== END 2016-06-24 21:30 | disposition home or self-care (01) ==
LOC: ED SRH 18:01
DX: A08.4 Viral intestinal infection, unspecified (principal); K50.90 Crohn's disease, unspecified, without complications; Z93.3 Colostomy status; F31.9 Bipolar disorder, unspecified; F17.210 Nicotine dependence, cigarettes, uncomplicated; Z88.0 Allergy status to penicillin; Z88.5 Allergy status to narcotic agent; Z88.8 Allergy status to other drugs, medicaments and biological substances
CPT/HCPCS: 90004; 90074; 90100; 91585; 93070; 95059